=== PATIENT | female | born 1990 | race Two or more races ===

== ENCOUNTER 2019-06-07 04:36 | Inpatient (IN) | payer OTHER ==
[~2019-06-07] VITALS: Ht 154.9 cm; Wt 64.4 kg
[2019-06-07] MEDS ORDERED: PRENATAL TABLE1 EAC1 PO (04:52)
== END 2019-06-09 13:11 | disposition home or self-care (01) | DRG 768 ==
LOC: O/R 04:36 → LDR 04:36 → OB/GYN 04:36 → O/R 10:45 → OB/GYN 11:55
PROVIDERS: ADMIT Obstetrics & Gynecology
PROC: 0UQC0ZZ Repair Cervix, Open Approach (ICD-10-PCS; 2019-06-07)
PROC: 4A0HXFZ Measurement of Products of Conception, Cardiac Rhythm, External Approach (ICD-10-PCS; 2019-06-07)
PROC: 10E0XZZ Delivery of Products of Conception, External Approach (ICD-10-PCS; principal; 2019-06-07 11:00)
DX: O71.3 Obstetric laceration of cervix (principal); Z37.0 Single live birth; Z3A.39 39 weeks gestation of pregnancy; O69.81X0 Labor and delivery complicated by cord around neck, without compression, not applicable or unspecified